=== PATIENT | female | born 1940 | race Caucasian/White ===

== ENCOUNTER 2019-01-25 19:00 | Emergency (ER) | payer MEDICARE ==
[2019-01-25 19:28] VITALS: BP 148/87
--- NOTE | 2019-01-25 20:53 | UC ---
Eye Complaint HPI - HPI Summary HPI Summary: 78-year-old female presents with complaints of redness, swelling, and pain of the right lower eyelid for the past week. States over the past couple of days she has also developed some right eye redness, itchiness, and a little bit of discharge from the eye. Denies fever, chills, visual disturbances, eye pain, injury of the eye, or URI symptoms. - History of Current Complaint Chief Complaint: UCSkin Stated Complaint: RT EYE COMPLAINT Time Seen by Provider: 01/25/19 20:44 Hx Obtained From: Patient Hx Last Menstrual Period: n/a Pain Intensity: 6 - Allergies/Home Medications Allergies/Adverse Reactions: Allergies Allergy/AdvReac Type Severity Reaction Status Date / Time ammonia Allergy See Comment Verified 01/25/19 19:21 Home Medications: Home Medications NK [No Home Medications Reported] 01/25/19 [History Confirmed 01/25/19] PMH/Surg Hx/FS Hx/Imm Hx Previously Healthy: Yes - Denies significant PMH - Surgical History Surgical History: Yes Surgery Procedure, Year, and Place: Vaginal cyst 1989. Tubal ligation age 33. RIGHT SHOULDER REPAIR. Back surgery - Family History Known Family History: Positive: Non-Contributory - Social History Occupation: Retired Lives: With Family Alcohol Use: None Substance Use Type: None Smoking Status (MU): Never Smoked Tobacco Review of Systems All Other Systems Reviewed And Are Negative: Yes Constitutional: Negative: Fever, Chills Eyes: Positive: Drainage, Eye Redness, Other - eyelid redness and swelling. Negative: Blurred Vision, Diplopia, Photophobia ENT: Positive: Negative Respiratory: Positive: Negative Cardiovascular: Positive: Negative Gastrointestinal: Positive: Negative Genitourinary: Positive: Negative Motor: Positive: Negative Neurovascular: Positive: Negative Musculoskeletal: Positive: Negative Neurological: Positive: Negative Is Patient Immunocompromised?: No Physical Exam - Summary Physical Exam Summary: GENERAL APPEARANCE: Well developed, well nourished, alert and cooperative, and appears to be in no acute distress. EYES: Area of localized erythema and edema noted to the right lower eyelid. Right conjunctiva erythematous. No drainage. Left conjunctiva clear. PERRL, EOM intact. Vision is grossly intact. CARDIAC: Normal S1 and S2. No S3, S4 or murmurs. Rhythm is regular. There is no peripheral edema, cyanosis or pallor. Extremities are warm and well perfused. Capillary refill is less than 2 seconds. Peripheral pulses intact. LUNGS: Clear to auscultation without rales, rhonchi, wheezing or diminished breath sounds. ABDOMEN: Positive bowel sounds. Soft, nondistended, nontender. No guarding or rebound. No masses or hepatosplenomegally. MUSKULOSKELETAL: ROM intact to all extremities. No joint erythema or tenderness. Normal muscular development. Normal gait. SKIN: Skin normal color, texture and turgor with no lesions or eruptions. Triage Information Reviewed: Yes Vital Signs: Initial Vital Signs Temp 98.4 F 01/25/19 19:21 Pulse 70 01/25/19 19:21 Resp 16 01/25/19 19:21 BP 148/87 01/25/19 19: Pulse Ox 97 01/25/19 19:21 Vital Signs Reviewed: Yes Eye Complaint Course/Dx - Course Course Of Treatment: 78-year-old female presents with complaints of redness, swelling, and pain of the right lower eyelid for the past week. States over the past couple of days she has also developed some right eye redness, itchiness, and a little bit of discharge from the eye. Denies fever, chills, visual disturbances, eye pain, injury of the eye, or URI symptoms. Afebrile. Hypertensive otherwise vital signs stable. Patient had a localized area of erythema and swelling to the right lower eyelid consistent with an external hordeolum, conjunctival erythema without drainage, and otherwise unremarkable exam. Will treat the hordeolum conservatively with warm moist compresses for 15 minutes and at least 4 times a day as well as [id number] analgesics. Will start her on Polytrim ophthalmic 1 drop 4 times a day 7 days to treat for a possible bacterial conjunctivitis. She is to follow-up with with ophthalmology in 3 days if her symptoms do not improve. Anticipatory guidance and warning symptoms were reviewed with the patient. Verbalizes understanding and agrees care. - Differential Dx/Diagnosis Differential Diagnosis/HQI/PQRI: Conjunctivitis, Periorbital Cellulitis, Orbital Cellulitis, Other - hodeolum, chalazion Provider Diagnosis: Hordeolum external, Conjunctivitis of right eye Discharge ED - Sign-Out/Discharge Documenting (check all that apply): Patient Departure All imaging exams completed and their final reports reviewed: No Studies - Discharge Plan Condition: Stable Disposition: HOME Patient Education Materials: Stye (ED), Conjunctivitis (ED) Referrals: Reyna Paredes MD [Primary Care Provider] - Jak Valenzuela MD [Medical Doctor] - 3 Days (If no improvement in symptoms. Call for appointment.) Additional Instructions: You have a blockage of one of the glands of the eyelid that help lubricate the eye, a condition called an external hordeolum or better known as a stye. Take acetaminophen (Tylenol) or ibuprofen (Advil, Motrin) according to directions as needed for any pain. Apply a warm moist compress to the eye for 15 minutes at least 4 times a day. You also appeared to have an infection of the eye therefore we will start to on an antibiotic eyedrop. Instill Polytrim ophthalmic 1 drop into the affected eye 4 times a day for 7 days. Follow-up with ophthalmology in 3 days if there is no improvement in your symptoms. He will need to call for an appointment. Seek immediate medical attention in the emergency room if you develop a fever greater than 100.5 F, have severe eye pain, severe swelling of the eye, loss of vision, visual disturbances, or any worsening of symptoms. - Billing Disposition and Condition Condition: STABLE Disposition: Home - Attestation Statements Provider Attestation: Per institutional requirements, I have reviewed the chart, however, I was not consulted specifically or made aware of this patient by the midlevel provider. I did not personally evaluate, interact with , or disposition this patient.
[2019-01-25] MEDS ORDERED: Polymyx/Trimethoprim OPTH* 10 ML BTL RIGHT EYE ONE (20:59)
== END 2019-01-25 21:10 | disposition home or self-care (01) ==
LOC: UCCORT 19:00
DX: H10.9 Unspecified conjunctivitis (principal); H00.012 Hordeolum externum right lower eyelid; Z91.09 Other allergy status, other than to drugs and biological substances
CPT/HCPCS: 99202; G0463